=== PATIENT | female | born 1935 | race Caucasian/White ===

== ENCOUNTER 2017-01-15 19:38 | Inpatient (IN) | payer OTHER ==
[~2017-01-15] VITALS: Ht 154.9 cm; Wt 45.5 kg
[2017-01-15 20:32] LABS: HEMATOCRIT 34.2 % (36.0-46.0); MCH 28.4 PG (29.0-34.0); MCV 85.9 FL (83-99); PLATELET COUNT 253 K/uL (156-360); RBC DIS.WIDTH-CV 14.3 % (11.8-14.6); RBC DIS.WIDTH-SD 45.1 % (39-53); RED BLOOD COUNT 3.98 M/uL (3.80-5.20); WHITE BLOOD COUNT 6.2 K/uL (4.1-10.2)
[2017-01-15 20:39] LABS: CREATININE 1.2 mg/dL (0.6-1.3); POTASSIUM 4.5 mEq/L (3.7-5.4)
[2017-01-15 20:41] LABS: CHLORIDE 99 mEq/L (99-109); POTASSIUM 5.1 mEq/L (3.7-5.4); SODIUM 134 mEq/L (136-147)
[2017-01-15 20:43] LABS: GLUCOSE 115 mg/dL (70-99)
[2017-01-15 20:44] LABS: ANION GAP 7 MEQ/L (2-14)
[2017-01-15 20:45] LABS: TOTAL BILIRUBIN 0.3 mg/dL (0.0-1.0)
[2017-01-15 20:47] LABS: ALKALINE PHOSPHATASE 68 IU/L (3-129); GFR ESTIMATE (CALCULATED) 38 mL/min/
[2017-01-15 20:48] LABS: UREA NITROGEN (BUN) 23 mg/dL (9-23)
[2017-01-15 20:49] LABS: DIRECT BILIRUBIN 0.1 mg/dL (0.0-0.3)
[2017-01-15 20:50] LABS: LIPASE 792 U/L (1.0-51.0)
[2017-01-15 20:53] LABS: TROP-I INTERPRETATION NEGATIVE; TROPONIN-I < 0.01 ng/mL (0.0-0.30)
[2017-01-15] MEDS ORDERED: LOSARTAN POTASS25 MG PO (22:15)
[2017-01-15] MEDS ORDERED: LO-DOSE ASPIRIN81 M1 PO (22:16)
[2017-01-15] MEDS ORDERED: AMLODIPINE BES2.5 MG PO (22:16)
[2017-01-15] MEDS ORDERED: SIMVASTATIN10 MG PO (22:16)
[2017-01-15] MEDS ORDERED: [UNRECOGNIZED DRUG - REMARK] PO ×2 (22:17→22:18)
[2017-01-16] VITALS (9 sets, daily range): BP systolic 136–173; BP diastolic 61–75
[2017-01-16 07:41] LABS: ALKALINE PHOSPHATASE 64 IU/L (3-129); TOTAL BILIRUBIN 0.4 MG/DL (0.0-1.0)
[2017-01-17 03:52] VITALS: BP 172/69
[2017-01-17 08:06] LABS: HEMATOCRIT 34.1 % (36.0-46.0); MCH 28.4 PG (29.0-34.0); MCHC 32.3 G/DL (30.0-36.0); MCV 88.1 FL (83-99); MEAN PLAT.VOLUME 9.9 uM^3 (9.5-12.4); PLATELET COUNT 226 K/uL (156-360); RBC DIS.WIDTH-CV 14.8 % (11.8-14.6); RBC DIS.WIDTH-SD 47.5 % (39-53); RED BLOOD COUNT 3.87 M/uL (3.80-5.20)
[2017-01-17 08:15] LABS: WHITE BLOOD COUNT 14.8 K/uL (4.1-10.2)
[2017-01-17 08:20] VITALS: BP 175/72
[2017-01-17 08:23] LABS: AMYLASE 105 IU/L (1-118); ANION GAP 6 MEQ/L (2-14); CHLORIDE 104 MEQ/L (99-109); SAMPLE HEMOLYSIS CHECK 0; SAMPLE ICTERIC CHECK 0; SAMPLE LIPEMIA CHECK 0; SODIUM 135 MEQ/L (136-147)
[2017-01-17 08:26] LABS: EOSINOPHIL (%) 0.1 % (0-5); IMMATURE GRANULOCYTE (%) 0.6 % (0.0-0.7); IMMATURE GRANULOCYTE COUNT 0.1 K/uL; INSTRUMENT ABS NEUTROPHIL CT 13.3 K/uL; LYMPHOCYTE COUNT 0.9 K/uL (1.0-2.8); MONOCYTE (%) 3.5 % (3-12); MONOCYTE COUNT 0.5 K/uL (0-0.8); NEUTROPHIL (%) 89.9 % (45-76); NEUTROPHIL COUNT 13.3 K/uL (1.8-6.4)
[2017-01-17 08:29] LABS: GLUCOSE 91 mg/dL (70-99); LIPASE 62 U/L (1.0-51.0); UREA NITROGEN (BUN) 10 mg/dL (9-23)
[2017-01-17 08:31] LABS: GFR ESTIMATE (CALCULATED) > 59 mL/min/; POTASSIUM 3.5 MEQ/L (3.7-5.4)
[2017-01-17 13:48] VITALS: BP 160/66
[2017-01-17 19:07] VITALS: BP 132/70
[2017-01-18] VITALS (7 sets, daily range): BP systolic 109–149; BP diastolic 52–69
[2017-01-18 07:24] LABS: HEMATOCRIT 28.9 % (36.0-46.0); MCH 28.9 PG (29.0-34.0); MCHC 32.2 G/DL (30.0-36.0); MCV 89.8 FL (83-99); MEAN PLAT.VOLUME 10.6 uM^3 (9.5-12.4); PLATELET COUNT 189 K/uL (156-360); RBC DIS.WIDTH-SD 49.3 % (39-53); RED BLOOD COUNT 3.22 M/uL (3.80-5.20); WHITE BLOOD COUNT 12.5 K/uL (4.1-10.2)
[2017-01-18 07:52] LABS: AMYLASE 36 IU/L (1-118); ANION GAP 6 MEQ/L (2-14); CHLORIDE 103 MEQ/L (99-109); GFR ESTIMATE (CALCULATED) > 59 mL/min/; GLUCOSE 103 mg/dL (70-99); LIPASE 15 U/L (1.0-51.0); MAGNESIUM 1.5 mg/dl (1.3-2.7); POTASSIUM 3.3 MEQ/L (3.7-5.4); SAMPLE HEMOLYSIS CHECK 0; SAMPLE ICTERIC CHECK 0; SAMPLE LIPEMIA CHECK 0; SODIUM 134 MEQ/L (136-147); UREA NITROGEN (BUN) 8 mg/dL (9-23)
[2017-01-19 04:11] VITALS: BP 146/67
[2017-01-19 07:02] LABS: HEMATOCRIT 28.9 % (36.0-46.0); MCH 28.8 PG (29.0-34.0); MCHC 32.5 G/DL (30.0-36.0); MCV 88.7 FL (83-99); MEAN PLAT.VOLUME 10.9 uM^3 (9.5-12.4); PLATELET COUNT 212 K/uL (156-360); RBC DIS.WIDTH-CV 14.6 % (11.8-14.6); RBC DIS.WIDTH-SD 47.6 % (39-53); RED BLOOD COUNT 3.26 M/uL (3.80-5.20); WHITE BLOOD COUNT 11.6 K/uL (4.1-10.2)
[2017-01-19 07:20] LABS: AMYLASE 18 IU/L (1-118); ANION GAP 8 MEQ/L (2-14); CHLORIDE 98 MEQ/L (99-109); GFR ESTIMATE (CALCULATED) > 59 mL/min/; GLUCOSE 60 mg/dL (70-99); LIPASE 6 U/L (1.0-51.0); POTASSIUM 3.8 MEQ/L (3.7-5.4); SAMPLE HEMOLYSIS CHECK 0; SAMPLE ICTERIC CHECK 0; SAMPLE LIPEMIA CHECK 0; SODIUM 132 MEQ/L (136-147); UREA NITROGEN (BUN) 8 mg/dL (9-23)
[2017-01-19 08:05] VITALS: BP 130/61
[2017-01-19 10:55] VITALS: BP 136/53
[2017-01-19 16:02] VITALS: BP 159/68
[2017-01-19 20:00] VITALS: BP 137/61
[2017-01-19 23:25] VITALS: BP 142/62
[2017-01-20 03:29] VITALS: BP 130/66
[2017-01-20 06:42] LABS: EOSINOPHIL (%) 3.4 % (0-5); EOSINOPHIL COUNT 0.3 K/uL (0-0.3); IMMATURE GRANULOCYTE (%) 1.3 % (0.0-0.7); IMMATURE GRANULOCYTE COUNT 0.1 K/uL; INSTRUMENT ABS NEUTROPHIL CT 6.7 K/uL; LYMPHOCYTE COUNT 1.4 K/uL (1.0-2.8); MCH 27.7 PG (29.0-34.0); MCHC 32.6 G/DL (30.0-36.0); MCV 85.2 FL (83-99); MEAN PLAT.VOLUME 10.4 uM^3 (9.5-12.4); MONOCYTE (%) 8.5 % (3-12); MONOCYTE COUNT 0.8 K/uL (0-0.8); NEUTROPHIL (%) 71.9 % (45-76); NEUTROPHIL COUNT 6.7 K/uL (1.8-6.4); PLATELET COUNT 267 K/uL (156-360); RBC DIS.WIDTH-SD 44.2 % (39-53); RED BLOOD COUNT 3.64 M/uL (3.80-5.20); WHITE BLOOD COUNT 9.4 K/uL (4.1-10.2)
[2017-01-20 07:13] LABS: ANION GAP 8 MEQ/L (2-14); CHLORIDE 95 MEQ/L (99-109); GFR ESTIMATE (CALCULATED) > 59 mL/min/; GLUCOSE 67 mg/dL (70-99); POTASSIUM 3.3 MEQ/L (3.7-5.4); SAMPLE HEMOLYSIS CHECK 0; SAMPLE ICTERIC CHECK 0; SAMPLE LIPEMIA CHECK 0; SODIUM 131 MEQ/L (136-147); UREA NITROGEN (BUN) 9 mg/dL (9-23)
[2017-01-20 07:31] VITALS: BP 149/65
[2017-01-20 11:22] VITALS: BP 147/62
[2017-01-20 16:00] VITALS: BP 148/63
[2017-01-20 20:00] VITALS: BP 131/59
[2017-01-20 23:57] VITALS: BP 133/60
[2017-01-21] VITALS (7 sets, daily range): BP systolic 111–137; BP diastolic 56–64
[2017-01-21 06:16] LABS: ANION GAP 8 MEQ/L (2-14); CHLORIDE 93 MEQ/L (99-109); GFR ESTIMATE (CALCULATED) > 59 mL/min/; GLUCOSE 77 mg/dL (70-99); POTASSIUM 3.7 MEQ/L (3.7-5.4); SAMPLE HEMOLYSIS CHECK 0; SAMPLE ICTERIC CHECK 0; SAMPLE LIPEMIA CHECK 0; SODIUM 131 MEQ/L (136-147); UREA NITROGEN (BUN) 12 mg/dL (9-23)
[2017-01-21 14:01] LABS: TROP-I INTERPRETATION POSITIVE; TROPONIN-I 0.79 ng/mL (0.0-0.30)
[2017-01-21 18:40] LABS: TROPONIN-I 0.95 ng/mL (0.0-0.30)
[2017-01-21 18:41] LABS: TROP-I INTERPRETATION POSITIVE
[2017-01-21 19:59] LABS: INTER. NORMALIZED RATIO 1.2; PROTHROMBIN TIME 12.1 (9.2-11.2)
[2017-01-22] VITALS (8 sets, daily range): BP systolic 118–139; BP diastolic 56–67
[2017-01-22 01:08] LABS: TROP-I INTERPRETATION POSITIVE; TROPONIN-I 0.83 ng/mL (0.0-0.30)
[2017-01-22 06:08] LABS: ANION GAP 9 MEQ/L (2-14); CHLORIDE 91 MEQ/L (99-109); POTASSIUM 3.6 MEQ/L (3.7-5.4); SAMPLE HEMOLYSIS CHECK 0; SAMPLE ICTERIC CHECK 0; SAMPLE LIPEMIA CHECK 0; SODIUM 128 MEQ/L (136-147)
[2017-01-22 06:13] LABS: GFR ESTIMATE (CALCULATED) > 59 mL/min/; GLUCOSE 69 mg/dL (70-99); UREA NITROGEN (BUN) 13 mg/dL (9-23)
[2017-01-23 06:36] LABS: ANION GAP 6 MEQ/L (2-14); CHLORIDE 96 MEQ/L (99-109); GFR ESTIMATE (CALCULATED) > 59 mL/min/; GLUCOSE 67 mg/dL (70-99); SAMPLE HEMOLYSIS CHECK 0; SAMPLE ICTERIC CHECK 0; SAMPLE LIPEMIA CHECK 0; SODIUM 128 MEQ/L (136-147); UREA NITROGEN (BUN) 12 mg/dL (9-23)
[2017-01-23 06:48] LABS: POTASSIUM 4.9 MEQ/L (3.7-5.4)
[2017-01-23 07:21] VITALS: BP 131/58
[2017-01-23 12:01] VITALS: BP 127/59
[2017-01-23] MEDS ORDERED: LOPRESSOR25 MG PO (12:20)
== END 2017-01-23 13:25 | disposition home or self-care (01) | DRG 439 ==
LOC: EME → EDBD 19:38 → EME 19:38 → EDOF 23:36 → 4EAST 23:36 → 5SOUTH 23:36 → EDOF 01-16 00:32 → 5SOUTH 01-16 00:40 → 4EAST 01-21 16:53
PROVIDERS: Emergency Medicine; Hospitalist; Internal Medicine; Internal Medicine Cardiovascular Disease; Internal Medicine Gastroenterology
PROC: B2111ZZ Fluoroscopy of Multiple Coronary Arteries using Low Osmolar Contrast (ICD-10-PCS; principal; 2017-01-22)
DX: K85.90 Acute pancreatitis without necrosis or infection, unspecified (principal); E22.2 Syndrome of inappropriate secretion of antidiuretic hormone; J81.1 Chronic pulmonary edema; I07.1 Rheumatic tricuspid insufficiency; I50.9 Heart failure, unspecified; M32.9 Systemic lupus erythematosus, unspecified; I27.2 Other secondary pulmonary hypertension; I25.82 Chronic total occlusion of coronary artery; I11.0 Hypertensive heart disease with heart failure; E78.5 Hyperlipidemia, unspecified; R55 Syncope and collapse; F17.200 Nicotine dependence, unspecified, uncomplicated; M19.90 Unspecified osteoarthritis, unspecified site; J98.11 Atelectasis; K59.00 Constipation, unspecified; I25.10 Atherosclerotic heart disease of native coronary artery without angina pectoris; E87.6 Hypokalemia; R09.02 Hypoxemia; R07.9 Chest pain, unspecified; R74.8 Abnormal levels of other serum enzymes
CPT/HCPCS: 70450; 71010; 74177; 80047; 80048; 80076; 81003; 82150; 83605; 83690; 83735; 83880; 84145 90; 84484; 85025; 85027; 85610; 87040; 93005; 93306; 99281; 99285; C1760; C1769; C1894; J0456; J0696; J1170; J1644; J1650; J1940; J2250; J2270; J2405; J3010; J7030; J7050; J7120; S0028

== ENCOUNTER 2018-02-11 13:08 | Inpatient (IN) | payer OTHER ==
[~2018-02-11] VITALS: Ht 154.9 cm; Wt 48.3 kg
[~2018-02-11 13:08] MED LIST: AMLODIPINE BES2.5 MG PO; LO-DOSE ASPIRIN81 M1 PO; LOPRESSOR25 MG PO; LOSARTAN POTASS25 MG PO; SIMVASTATIN10 MG PO; [UNRECOGNIZED DRUG - REMARK] PO
[2018-02-11 14:51] LABS: HEMATOCRIT 29.2 % (36.0-46.0); HEMOGLOBIN 9.8 G/DL (11.9-15.5); MCH 29.4 PG (29.0-34.0); MCHC 33.6 G/DL (30.0-36.0); MCV 87.7 FL (83-99); PLATELET COUNT 245 K/uL (156-360); RBC DIS.WIDTH-CV 13.9 % (11.8-14.6); RBC DIS.WIDTH-SD 44.5 % (39-53); RED BLOOD COUNT 3.33 M/uL (3.80-5.20); WHITE BLOOD COUNT 6.4 K/uL (4.1-10.2)
[2018-02-11 15:00] LABS: ALBUMIN 3.3 g/dL (3.2-4.8); CHLORIDE 96 mEq/L (99-109); MAGNESIUM 2.1 mg/dL (1.3-2.7); POTASSIUM 4.4 mEq/L (3.7-5.4); SODIUM 127 mEq/L (136-147)
[2018-02-11 15:02] LABS: GLUCOSE 78 mg/dL (70-99); TOTAL PROTEIN 7.4 g/dL (6.4-8.3)
[2018-02-11 15:04] LABS: TOTAL BILIRUBIN 0.6 mg/dL (0.0-1.0)
[2018-02-11 15:05] LABS: ALKALINE PHOSPHATASE 73 IU/L (3-129)
[2018-02-11 15:06] LABS: CREATININE 1.2 mg/dL (0.6-1.3); GFR ESTIMATE (CALCULATED) 46 mL/min/
[2018-02-11 15:07] LABS: AST (GOT) 16 IU/L (2-34); UREA NITROGEN (BUN) 26 mg/dL (9-23)
[2018-02-11 15:09] LABS: ALT (GPT) 12 IU/L (3-49)
[2018-02-11 15:14] LABS: TROP-I INTERPRETATION NEGATIVE; TROPONIN-I 0.03 ng/mL (0.0-0.30)
[2018-02-11 15:39] LABS: ABS NEUTROPHIL COUNT 4.8; BAND NEUTROPHILS 25.2 % (0-8.0); EOSINOPHIL ABS CT 0; HELMET CELLS 1+; HEMATOLOGY COMMENT 1 SN; HYPOCHROMASIA 2+; LYMPHOCYTES 9.6 % (15.0-45.0); MICROCYTOSIS 2+; MONOCYTES 7.8 % (0-9.0); PLAT.SUFFICIENCY ADEQUATE; SEG.NEUTROPHILS 50.4 % (46.0-76.0); SPHEROCYTES 1+; TARGET CELLS 1+
[2018-02-11] MEDS ORDERED: METOPROLOL TART25 MG PO ×3 (17:30)
[2018-02-11] MEDS ORDERED: RANEXA500 MG PO (17:31)
[2018-02-11] MEDS ORDERED: CENTRUM SILVER1 EAC3 PO (17:32)
[2018-02-11] MEDS ORDERED: ISOSORBIDE MONO30 MG PO (17:32)
[2018-02-11] MEDS ORDERED: VITAMIN D31000 UNIT PO (17:32)
[2018-02-11 18:57] LABS: APPEARANCE CLEAR ((CLEAR)); BILIRUBIN NEGATIVE; BLOOD NEGATIVE; COLOR YELLOW ((YELLOW)); GLUCOSE (STRIP) NEGATIVE; KETONES 20; LEUKOCYTES NEGATIVE; NITRITE NEGATIVE; PROTEIN (STRIP) NEGATIVE; SPECIFIC GRAVITY 1.048 (1.000-1.030); UCUL ADDED? NO; UROBILINOGEN 0.2 MG/DL (0.2-1.0)
[2018-02-11 19:22] LABS: CHLORIDE 97 mEq/L (99-109); POTASSIUM 4.1 mEq/L (3.7-5.4); SODIUM 129 mEq/L (136-147)
[2018-02-11 19:27] LABS: GLUCOSE 73 mg/dL (70-99)
[2018-02-11 19:32] LABS: CREATININE 1.1 mg/dL (0.6-1.3); GFR ESTIMATE (CALCULATED) 51 mL/min/; UREA NITROGEN (BUN) 23 mg/dL (9-23)
[2018-02-11 20:19] VITALS: BP 140/62
[2018-02-11 22:07] LABS: C DIFF TOXIN POSITIVE (NEGATIVE)
[2018-02-12] VITALS (7 sets, daily range): BP systolic 115–140; BP diastolic 55–74
[2018-02-12 05:16] LABS: HEMOGLOBIN 9.3 G/DL (11.9-15.5); MCH 28.5 PG (29.0-34.0); MCHC 32.1 G/DL (30.0-36.0); NRBC (%) 0.5 /100 WBC (0-0); PLATELET COUNT 250 K/uL (156-360); RBC DIS.WIDTH-CV 13.9 % (11.8-14.6); RBC DIS.WIDTH-SD 45.6 % (39-53); RED BLOOD COUNT 3.26 M/uL (3.80-5.20); WHITE BLOOD COUNT 5.9 K/uL (4.1-10.2)
[2018-02-12 05:32] LABS: CHLORIDE 98 MEQ/L (99-109); CREATININE 0.9 MG/DL (0.6-1.3); GFR ESTIMATE (CALCULATED) > 59 mL/min/; GLUCOSE 71 mg/dL (70-99); SODIUM 129 MEQ/L (136-147); UREA NITROGEN (BUN) 18 mg/dL (9-23)
[2018-02-12 14:51] LABS: STOOL OCCULT BLD 1ST SPECIMEN NEGATIVE
[2018-02-12 15:57] LABS: HEMOGLOBIN 9.2 G/DL (11.9-15.5); MCV 88.6 FL (83-99)
[2018-02-13 06:39] LABS: CHLORIDE 103 MEQ/L (99-109); CREATININE 0.8 MG/DL (0.6-1.3); GFR ESTIMATE (CALCULATED) > 59 mL/min/; GLUCOSE 76 mg/dL (70-99); POTASSIUM 3.5 MEQ/L (3.7-5.4); SODIUM 131 MEQ/L (136-147); UREA NITROGEN (BUN) 9 mg/dL (9-23)
[2018-02-13 06:45] LABS: HEMATOCRIT 42.4 % (36.0-46.0); MCHC 33.3 G/DL (30.0-36.0); MCV 87.1 FL (83-99); RBC DIS.WIDTH-CV 14.1 % (11.8-14.6); RBC DIS.WIDTH-SD 45.3 % (39-53)
[2018-02-13 06:49] LABS: HEMOGLOBIN 14.1 G/DL (11.9-15.5); RED BLOOD COUNT 4.87 M/uL (3.80-5.20)
[2018-02-13 07:54] VITALS: BP 160/70
[2018-02-13 08:23] LABS: PLAT.SUFFICIENCY ADEQUATE; PLATELET COUNT 277 K/uL (156-360)
[2018-02-13 09:37] LABS: MCV 87.5 FL (83-99)
[2018-02-13 09:38] LABS: HEMOGLOBIN 9.9 G/DL (11.9-15.5)
[2018-02-13 11:23] VITALS: BP 125/65
[2018-02-13 15:43] VITALS: BP 155/58
[2018-02-13 19:18] VITALS: BP 133/71
[2018-02-13 23:47] VITALS: BP 121/66
[2018-02-14 04:11] VITALS: BP 133/71
[2018-02-14 06:54] LABS: HEMATOCRIT 27.9 % (36.0-46.0); HEMOGLOBIN 9.5 G/DL (11.9-15.5); MCH 29.3 PG (29.0-34.0); MCHC 34.1 G/DL (30.0-36.0); MCV 86.1 FL (83-99); PLATELET COUNT 282 K/uL (156-360); RBC DIS.WIDTH-SD 44.3 % (39-53); WHITE BLOOD COUNT 5.7 K/uL (4.1-10.2)
[2018-02-14 07:02] LABS: RED BLOOD COUNT 3.24 M/uL (3.80-5.20)
[2018-02-14 07:12] LABS: CHLORIDE 105 MEQ/L (99-109); CREATININE 0.8 MG/DL (0.6-1.3); GFR ESTIMATE (CALCULATED) > 59 mL/min/; GLUCOSE 92 mg/dL (70-99); POTASSIUM 3.5 MEQ/L (3.7-5.4); SODIUM 136 MEQ/L (136-147); UREA NITROGEN (BUN) 6 mg/dL (9-23)
[2018-02-14 07:40] VITALS: BP 150/60
[2018-02-14] MEDS ORDERED: VANCOMYCIN HCL125 MG PO (11:48)
[2018-02-14 12:03] VITALS: BP 140/58
== END 2018-02-14 13:29 | disposition home or self-care (01) | DRG 372 ==
LOC: EME 13:08 → EDOF 18:34 → ENRESERV 18:35 → 5SOUTH 20:02
PROVIDERS: Emergency Medicine; Hospitalist; Physician Assistant Medical
DX: A04.72 Enterocolitis due to Clostridium difficile, not specified as recurrent (principal); E86.0 Dehydration; E87.6 Hypokalemia; E22.2 Syndrome of inappropriate secretion of antidiuretic hormone; E86.1 Hypovolemia; I95.9 Hypotension, unspecified; D64.9 Anemia, unspecified; K83.8 Other specified diseases of biliary tract; I10 Essential (primary) hypertension; E78.5 Hyperlipidemia, unspecified; J44.9 Chronic obstructive pulmonary disease, unspecified; I27.20 Pulmonary hypertension, unspecified; I25.10 Atherosclerotic heart disease of native coronary artery without angina pectoris; Z79.82 Long term (current) use of aspirin; I25.2 Old myocardial infarction; Z87.891 Personal history of nicotine dependence
CPT/HCPCS: 74177; 80048; 80048 91; 80053; 81003; 82272; 82436; 83735; 83930; 83935; 84133; 84300; 84443; 84484; 85014; 85018; 85025; 85027; 87493; 87506; 93005; 99281; 99285; J1644; J3480; J7030